=== PATIENT | female | born 1995 | race Caucasian/White ===

== ENCOUNTER 2018-10-27 18:29 | Emergency (ER) | payer SELFPAY ==
--- OUTSIDE RECORDS SUMMARY | 2018-10-27 18:32 | XMS REPORT | Clinical Summary ---
:1995 Author Organization [facility] Address [address] [place] [address] Care Team Providers Name Role Phone Asked, No Pcp Primary Care Provider Unavailable Allergies No Known Allergies Medications No known medications Active Problems Not on file Social History Tobacco Use Types Packs/Day Years Used Date Heavy Tobacco Smoker Cigarettes 0.5 1 Alcohol Use Drinks/Week oz/Week Comments Yes 1 Cans of beer 0.6 Sex Assigned at Date Recorded Not on file Job Start Date Occupation Industry Not on file Not on file Not on file Travel History Travel Start Travel End No recent travel history available. Last Filed Vital Signs Not on file Plan of Treatment Health Maintenance Due Date Last Done Comments CHLAMYDIA SCREENING 2010 INFLUENZA VACCINE 11/07/2018 Results Not on fileafter 10/26/2017 Advance Directives Patient has advance care planning documents on file. For more information, please contact:Nash Ninseyfw[address] [place] [address]
--- OUTSIDE RECORDS SUMMARY | 2018-10-27 18:32 | XMS REPORT ---
:1995 Author Organization [facility] Address [address] [place] [address] Dr. Marquis [address] [place] [id number] Care Team Providers Name Role Phone Unavailable Unavailable Unavailable Problems This patient has no known problems. Allergies, Adverse Reactions, Alerts This patient has no known allergies or adverse reactions. Medications This patient has no known medications. Encounters Start End Encounter Admission Attending Care Care Encounter Date/Time Date/Time Type Type Clinicians Facility Department ID 2017-05-14 2017-05-15 Outpatient [facility] [id number] 00:00:00 00:00:00
--- NOTE | 2018-10-27 18:58 | EDPHYS ---
Physician Documentation [facility] Name: Vianney Kauffman Age: 22 yrs Sex: Female : 1995 Arrival Date: 10/27/2018 Time: 18:31 Bed 28 Private MD: ED Physician Mitesh Cano HPI: 10/27 18:55 This 22 yrs old Female presents to ER via Ambulatory with complaints of kb Abdominal Cramping, Back Pain. 18:55 The patient presents to the emergency department with abdominal pain, vaginal bleeding, kb described as spotting. Previous pregnancies: in previous pregnancies patient has had. Associated signs and symptoms: Pertinent positives: abdominal pain, vaginal bleeding. The patient has not experienced similar symptoms in the past. The patient has not recently seen a physician. Pt reports she started having spotting and cramping 2 days ago and the symptoms have been getting worse. Reports she has the nexplanon so she isn't supposed to have a period so she took a test and there was a faint line showing positive. Has had the nexplanon in for 2.5 years and reports it is bent. 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 - Social history:: Smoking status: Patient/guardian denies using tobacco. - Ebola Screening: : No symptoms or risks identified at this time. ROS: 18:55 Constitutional: Negative for fever, chills, and weight loss, Cardiovascular: Negative kb for chest pain, palpitations, and edema, Respiratory: Negative for shortness of breath, cough, wheezing, and pleuritic chest pain, Back: Negative for injury and pain, MS/Extremity: Negative for injury and deformity, Skin: Negative for injury, rash, and discoloration, Neuro: Negative for headache, weakness, numbness, tingling, and seizure. 18:55 Abdomen/GI: Positive for abdominal cramps. 18:55 : Positive for vaginal bleeding. Exam: 18:55 Constitutional: This is a well developed, well nourished patient who is awake, alert, kb and in no acute distress. Head/Face: Normocephalic, atraumatic. Chest/axilla: Normal chest wall appearance and motion. Nontender with no deformity. No lesions are appreciated. Cardiovascular: Regular rate and rhythm with a normal S1 and S2. No gallops, murmurs, or rubs. Normal PMI, no JVD. No pulse deficits. Respiratory: Lungs have equal breath sounds bilaterally, clear to auscultation and percussion. No rales, rhonchi or wheezes noted. No increased work of breathing, no retractions or nasal flaring. Abdomen/GI: Soft, non-tender, with normal bowel sounds. No distension or tympany. No guarding or rebound. No evidence of tenderness throughout. Skin: Warm, dry with normal turgor. Normal color with no rashes, no lesions, and no evidence of cellulitis. MS/ Extremity: Pulses equal, no cyanosis. Neurovascular intact. Full, normal range of motion. Neuro: Awake and alert, GCS 15, oriented to person, place, time, and situation. Cranial nerves II-XII grossly intact. Motor strength 5/5 in all extremities. Sensory grossly intact. Cerebellar exam normal. Normal gait. Vital Signs: 18:36 BP 130 / 76; Pulse 108; Resp 16; Temp 97.8; Pulse Ox 98% on R/A; Weight 85.73 kg; la1 Height 5 ft. 3 in. (160.02 cm); 18:36 Body Mass Index 33.48 (85.73 kg, 160.02 cm) la1 MDM: 18:41 Patient medically screened. kb 18:55 Data reviewed: vital signs, nurses notes. Data interpreted: Pulse oximetry: on room air kb is 98 %. Interpretation: normal. Counseling: I had a detailed discussion with the patient and/or guardian regarding: the historical points, exam findings, and any diagnostic results supporting the discharge/admit diagnosis, lab results, the need for outpatient follow up, an OB/Gyne specialist, to return to the emergency department if symptoms worsen or persist or if there are any questions or concerns that arise at home. 18:58 ED course: test is negative here. Pt educated to follow up with [facility]. kb 10/27 18:57 Order name: Urine Dipstick--Ancillary (enter results) ms 10/27 18:57 Order name: Urine --Ancillary (enter results) ms 10/27 18:42 Order name: Urine Dipstick-Ancillary (obtain specimen); Complete Time: 18:55 kb 10/27 18:42 Order name: Urine Test (obtain specimen); Complete Time: 18:55 kb 10/27 18:58 Order name: Urine Dipstick-Ancillary; Complete Time: 19:12 EDMS 10/27 18:58 Order name: Urine --Ancillary; Complete Time: 19:12 EDMS Administered Medications: No medications were administered Disposition: 10/27/18 18:57 Discharged to Home. Impression: Irregular menstruation, unspecified. - Condition is Stable. - Discharge Instructions: Abnormal Uterine Bleeding, [id number]. - Medication Reconciliation Form, Thank You Letter, Antibiotic Education, Prescription Opioid Use form. - Follow up: Emergency Department; When: As needed; Reason: Worsening of condition. Follow up: Private Physician; When: 2 - 3 days; Reason: Recheck today's complaints, Continuance of care, Re-evaluation by your physician. Signatures: Dispatcher [employer] EDDC Supriya Rodriguez, BEAUTY THERAPIST-C BEAUTY THERAPIST-Wyatt Choudhury RN RN la1 Chelsey Mckay RN RN ca1 Corrections: (The following items were deleted from the chart) 19:16 18:57 10/27/2018 18:57 Discharged to Home. Impression: Irregular menstruation, ca1 unspecified. Condition is Stable. Forms are Medication Reconciliation Form, Thank You Letter, Antibiotic Education, Prescription Opioid Use. Follow up: Emergency Department; When: As needed; Reason: Worsening of condition. Follow up: Private Physician; When: 2 - 3 days; Reason: Recheck today's complaints, Continuance of care, Re-evaluation by your physician. kb
--- NOTE | 2018-10-27 18:58 | ER ---
Nurse's Notes [facility] Name: Vianney Kauffman Age: 22 yrs Sex: Female : 1995 Arrival Date: 10/27/2018 Time: 18:31 Bed 28 Private MD: Diagnosis: Irregular menstruation, unspecified Presentation: 10/27 18:36 Presenting complaint: Patient states: I have a nexplanon and I have been having la1 spotting for 2 days and abd cramping today. I took one UPT at home and there was a faint line. Transition of care: patient was not received from another setting of care. Onset of symptoms was October 27, 2018. Risk Assessment: Do you want to hurt yourself or someone else? Patient reports no desire to harm self or others. Initial Sepsis Screen: Does the patient meet any 2 criteria? No. Patient's initial sepsis screen is negative. Does the patient have a suspected source of infection? No. Patient's initial sepsis screen is negative. Care prior to arrival: None. 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 - Social history:: Smoking status: Patient/guardian denies using tobacco. - Ebola Screening: : No symptoms or risks identified at this time. Screenin:50 Abuse screen: Denies threats or abuse. Denies injuries from another. Nutritional ca1 screening: No deficits noted. Tuberculosis screening: No symptoms or risk factors identified. Fall Risk None identified. Assessment: 18:50 General: Appears in no apparent distress. comfortable, Behavior is calm, cooperative, ca1 appropriate for age. Pain: Complains of pain in abdomen Pain radiates to back Pain currently is 8 out of 10 on a pain scale. Quality of pain is described as crampy, Pain began today Is intermittent. Neuro: Level of Consciousness is awake, alert, obeys commands, Oriented to person, place, time, situation. Cardiovascular: Heart tones S1 S2 present Capillary refill < 3 seconds Patient's skin is warm and dry. Respiratory: Airway is patent Respiratory effort is even, unlabored, Respiratory pattern is regular, symmetrical, Breath sounds are clear bilaterally. GI: Abdomen is round non-distended, Bowel sounds present X 4 quads. Abd is soft X 4 quads Abdomen is tender to palpation in suprapubic area, right lower quadrant and left lower quadrant Patient currently denies nausea, vomiting. : Reports vaginal bleeding that is spotty, since yesterday. EENT: No deficits noted. No signs and/or symptoms were reported regarding the EENT system. Derm: Skin is intact, is healthy with good turgor, Skin is pink, warm \T\ dry. Musculoskeletal: Circulation, motion, and sensation intact. Capillary refill < 3 seconds, Range of motion: intact in all extremities. 19:14 Reassessment: Patient appears in no apparent distress at this time. Patient is alert, ca1 oriented x 3, equal unlabored respirations, skin warm/dry/pink. Vital Signs: 18:36 BP 130 / 76; Pulse 108; Resp 16; Temp 97.8; Pulse Ox 98% on R/A; Weight 85.73 kg; la1 Height 5 ft. 3 in. (160.02 cm); 18:36 Body Mass Index 33.48 (85.73 kg, 160.02 cm) la1 ED Course: 18:31 Patient arrived in ED. mr 18:36 Arm band placed on left wrist. la1 18:37 Triage completed. la1 18:41 Supriya Rodriguez FNP-C is [facility]. kb 18:41 Mitesh Cano MD is Attending Physician. kb 18:50 Patient has correct armband on for positive identification. Placed in gown. Bed in low ca1 position. Call light in reach. Side rails up X 1. Pulse ox on. NIBP on. Warm blanket given. 18:50 No provider procedures requiring assistance completed. Patient did not have IV access ca1 during this emergency room visit. 18:55 Chelsey Mckay, BESSIE is Primary Nurse. ca1 19:00 Urine --Ancillary (enter results) Sent. jp3 19:00 Urine Dipstick--Ancillary (enter results) Sent. jp3 Administered Medications: No medications were administered Outcome: 18:57 Discharge ordered by . kb 19:14 Discharged to home ambulatory, with significant other. ca1 19:14 Condition: stable 19:14 Discharge instructions given to patient, Instructed on discharge instructions, follow up and referral plans. Demonstrated understanding of instructions, follow-up care. 19:16 Patient left the ED. ca1 Signatures: Supriya Rodriguez, JAMESON JONASP-Gricel Palomo mr DelphineWyatt, RN RN la1 Mino Belle jp3 Chelsey Mckay RN RN ca1
[2018-10-27 19:03] LABS: Urine Blood 2+ (NEG); Urine Glucose NEGATIVE (NEG); Urine Protein NEGATIVE (NEG)
== END 2018-10-27 19:16 | disposition home or self-care (01) ==
LOC: ER 18:29
DX: N92.6 Irregular menstruation, unspecified (principal)
CPT/HCPCS: 81003; 81025; 99283

== ENCOUNTER 2019-04-07 12:49 | Emergency (ER) | payer SELFPAY ==
--- OUTSIDE RECORDS SUMMARY | 2019-04-07 12:51 | XMS REPORT ---
:1995 [facility] Address [address] Marquis [address] [place] [address] Care Team Providers Name Role Phone Unavailable Unavailable Unavailable Problems This patient has no known problems. Allergies, Adverse Reactions, Alerts This patient has no known allergies or adverse reactions. Medications This patient has no known medications. Encounters Start End Encounter Admission Attending Care Care Encounter Date/Time Date/Time Type Type Clinicians Facility Department ID 2017-05-14 2017-05-15 Outpatient [facility] [id number] 00:00:00 00:00:00
[2019-04-07] MEDS ORDERED: TETRACAINE HCL 0.5% 4ML OPTH ONE (13:54)
[2019-04-07] MEDS ORDERED: FLUORESCEIN SODIUM 1 MG/WRAP ONE (13:54)
--- NOTE | 2019-04-07 14:56 | ER ---
Nurse's Notes [facility] Name: Vianney Kauffman Age: 23 yrs Sex: Female : 1995 Arrival Date: 04/07/2019 Time: 12:52 Bed 12 Private MD: Diagnosis: Preseptal Cellulitis Presentation: 04/07 13:03 Presenting complaint: Left eye pain, redness, and swelling x 3 days. Transition of hb care: patient was not received from another setting of care. Onset of symptoms was April 05, 2019. Risk Assessment: Do you want to hurt yourself or someone else? Patient reports no desire to harm self or others. Initial Sepsis Screen: Does the patient meet any 2 criteria? No. Patient's initial sepsis screen is negative. Care prior to arrival: None. 13:03 Method Of Arrival: Ambulatory 13:03 Acuity: SOLEDAD 4 hb Triage Assessment: 13:05 General: Appears in no apparent distress. Behavior is calm, cooperative. Pain: Pain hb currently is 8 out of 10 on a pain scale. EENT: left periorbital swelling. Neuro: Level of Consciousness is awake, alert, obeys commands, Oriented to person, place, time, situation. Cardiovascular: Capillary refill < 3 seconds Patient's skin is warm and dry. Respiratory: Airway is patent Respiratory effort is even, unlabored, Respiratory pattern is regular, symmetrical. GI: No signs and/or symptoms were reported involving the gastrointestinal system. : No signs and/or symptoms were reported regarding the genitourinary system. Derm: Skin is pink, warm \T\ dry. Musculoskeletal: No signs and/or symptoms reported regarding the musculoskeletal system. 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 - Social history:: Smoking status: Patient/guardian denies using tobacco. - Ebola Screening: : No symptoms or risks identified at this time. Screenin:49 Abuse screen: Denies threats or abuse. Denies injuries from another. Nutritional hb screening: No deficits noted. Tuberculosis screening: No symptoms or risk factors identified. Fall Risk None identified. Assessment: 13:49 Reassessment: Patient appears in no apparent distress at this time. No changes from hb previously documented assessment. Patient and/or family updated on plan of care and expected duration. Pain level reassessed. 14:45 Reassessment: Patient appears in no apparent distress at this time. No changes from hb previously documented assessment. Patient and/or family updated on plan of care and expected duration. Pain level reassessed. Patient is alert, oriented x 3, equal unlabored respirations, skin warm/dry/pink. Vital Signs: 13:04 BP 148 / 88; Pulse 86; Resp 16; Temp 97.9; Pulse Ox 100% on R/A; Weight 104.33 kg; hb Height 5 ft. 3 in. (160.02 cm); Pain 8/10; 13:04 Body Mass Index 40.74 (104.33 kg, 160.02 cm) hb ED Course: 12:52 Patient arrived in ED. rg4 13:04 Triage completed. hb 13:04 Arm band placed on. hb 13:47 Nitza Plaza, RN is Primary Nurse. hb 13:49 Floyd Milligan PA is PHCP. jr8 13:49 Clifford Bateman MD is Attending Physician. jr8 13:49 Patient has correct armband on for positive identification. Call light in reach. hb 14:54 Jayjay Hayes MD is Referral Physician. jr8 15:13 No provider procedures requiring assistance completed. Patient did not have IV access hb during this emergency room visit. Administered Medications: No medications were administered Outcome: 14:54 Discharge ordered by . jr8 15:13 Discharged to home ambulatory, with family. hb 15:13 Condition: stable 15:13 Discharge instructions given to patient, Instructed on discharge instructions, follow up and referral plans. medication usage, Demonstrated understanding of instructions, follow-up care, medications, Prescriptions given X 2. 15:14 Patient left the ED. hb Signatures: Floyd Milligan PA PA jrNitza Caba, RN RN Lili Perez rg4
--- NOTE | 2019-04-07 14:56 | EDPHYS ---
Physician Documentation [facility] Name: Vianney Kauffman Age: 23 yrs Sex: Female : 1995 Arrival Date: 04/07/2019 Time: 12:52 Bed 12 Private MD: ED Physician Clifford Bateman HPI: 04/07 14:47 This 23 yrs old Female presents to ER via Ambulatory with complaints of Eye jr8 Swelling. 14:47 The patient is experiencing burning, redness, tearing. Onset: The symptoms/episode jr8 began/occurred acutely, yesterday. Duration: the symptoms are continuous. Aggravated by light. Associated signs and symptoms: Pertinent positives: None. Patient does not utilize any form of vision correction. Severity of symptoms: At their worst the symptoms were moderate in the emergency department the symptoms are unchanged. The patient has not experienced similar symptoms in the past. The patient has not recently seen a physician. Patient stated that she felt like something was in her eye yesterday. Stated that since then has had itching and burning. Now with injection, pain, and tearing to eye . 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 - Social history:: Smoking status: Patient/guardian denies using tobacco. - Ebola Screening: : No symptoms or risks identified at this time. ROS: 14:47 Constitutional: Negative for fever, chills, and weight loss. jr8 14:47 Eyes: Positive for blurry vision, pain, redness, swelling, tearing, of the left eye. 14:47 All other systems are negative. Exam: 14:47 Head/Face: Normocephalic, atraumatic. ENT: Nares patent. No nasal discharge, no jr8 septal abnormalities noted. Tympanic membranes are normal and external auditory canals are clear. Oropharynx with no redness, swelling, or masses, exudates, or evidence of obstruction, uvula midline. Mucous membranes moist. Neck: Trachea midline, no thyromegaly or masses palpated, and no cervical lymphadenopathy. Supple, full range of motion without nuchal rigidity, or vertebral point tenderness. No Meningismus. Cardiovascular: Regular rate and rhythm with a normal S1 and S2. No gallops, murmurs, or rubs. Normal PMI, no JVD. No pulse deficits. Respiratory: Lungs have equal breath sounds bilaterally, clear to auscultation and percussion. No rales, rhonchi or wheezes noted. No increased work of breathing, no retractions or nasal flaring. Abdomen/GI: Soft, non-tender, with normal bowel sounds. No distension or tympany. No guarding or rebound. No evidence of tenderness throughout. Back: No spinal tenderness. No costovertebral tenderness. Full range of motion. Skin: Warm, dry with normal turgor. Normal color with no rashes, no lesions, and no evidence of cellulitis. MS/ Extremity: Pulses equal, no cyanosis. Neurovascular intact. Full, normal range of motion. Neuro: Awake and alert, GCS 15, oriented to person, place, time, and situation. Cranial nerves II-XII grossly intact. Motor strength 5/5 in all extremities. Sensory grossly intact. Cerebellar exam normal. Normal gait. 14:47 Eyes: Periorbital structures: swelling, that is mild, on the left supraorbital ridge, left upper eyelid and left lower eyelid, Pupils: equal, round, and reactive to light and accomodation, Extraocular movements: intact throughout, Conjunctiva: injected, in the left eye, tearing noted, in left eye, Corneas: are normal, Sclera: no appreciated abnormality, Anterior chamber: normal, Lids and lashes: appear normal. Vital Signs: 13:04 BP 148 / 88; Pulse 86; Resp 16; Temp 97.9; Pulse Ox 100% on R/A; Weight 104.33 kg; hb Height 5 ft. 3 in. (160.02 cm); Pain 8/10; 13:04 Body Mass Index 40.74 (104.33 kg, 160.02 cm) hb Procedures: 14:53 Eye Exam: No corneal abrasion or ulceration noted with fluorescein strip. jr8 MDM: 13:50 Patient medically screened. [facility] 14:53 Data reviewed: vital signs, nurses notes. Data interpreted: Pulse oximetry: on room air jr8 is 100 %. Interpretation: normal. Counseling: I had a detailed discussion with the patient and/or guardian regarding: the historical points, exam findings, and any diagnostic results supporting the discharge/admit diagnosis, the need for outpatient follow up, an opthalmologist, to return to the emergency department if symptoms worsen or persist or if there are any questions or concerns that arise at home. Administered Medications: No medications were administered Disposition: 04/07/19 14:54 Discharged to Home. Impression: Preseptal Cellulitis . - Condition is Stable. - Discharge Instructions: Preseptal Cellulitis, Adult. - Prescriptions for Gentamicin 0.3 % Ophthalmic Drops - instill 2 drops by OPHTHALMIC route every 4 hours for 7 days; 1 bottle. Bactrim DS 800- 160 mg Oral Tablet - take 1 tablet by ORAL route every 12 hours for 10 days; 20 tablet. - Medication Reconciliation Form, Thank You Letter, Antibiotic Education, Prescription Opioid Use, Family Work Release form. - Follow up: Jayjay Hayes MD; When: 2 - 3 days; Reason: Recheck today's complaints, Continuance of care, Re-evaluation by your physician. - Problem is new. - Symptoms have improved. Addendum: 04/14/2019 07:24 Co-signature as Attending Physician, Clifford Bateman MD I agree with the assessment and c beltran plan of care. Signatures: Clifford Bateman MD MD cha Roszak, Josh, PA PA jr8 Nitza Plaza RN RN Corrections: (The following items were deleted from the chart) 04/07 15:14 14:54 04/07/2019 14:54 Discharged to Home. Impression: Preseptal Cellulitis . Condition hb is Stable. Forms are Medication Reconciliation Form, Thank You Letter, Antibiotic Education, Prescription Opioid Use. Follow up: Jayjay Hayes; When: 2 - 3 days; Reason: Recheck today's complaints, Continuance of care, Re-evaluation by your physician. Problem is new. Symptoms have improved. jr8
[2019-04-07 15:27] VITALS: BP 148/88; TEMP 97.9; O2SAT 100
== END 2019-04-07 15:14 | disposition home or self-care (01) ==
LOC: ER 12:49
DX: L03.213 Periorbital cellulitis (principal)
CPT/HCPCS: 99282

== ENCOUNTER 2019-08-13 03:46 | Inpatient (IN) | payer SELFPAY ==
--- OUTSIDE RECORDS SUMMARY | 2019-08-13 03:48 | XMS REPORT ---
:1995 Author Organization [facility] Address [address] [place] [address] Dr. Marquis [address] [place] [address] Care Team Providers Name Role Phone Unavailable Unavailable Unavailable Problems This patient has no known problems. Allergies, Adverse Reactions, Alerts This patient has no known allergies or adverse reactions. Medications This patient has no known medications. Encounters Start End Encounter Admission Attending Care Care Encounter Date/Time Date/Time Type Type Clinicians Facility Department ID 2017-05-14 2017-05-15 [id number] 00:00:00 00:00:00
[2019-08-13] MEDS ORDERED: ONDANSETRON 4 MG/2 ML VIAL ONE ×2 (04:18→08:53)
[2019-08-13] MEDS ORDERED: MORPHINE 4 MG/ML SYR ONE (04:18)
[2019-08-13 04:20] LABS: Absolute Lymphocytes (CBC) 3.5 K/uL (0.7-4.9); Basophils % 0.6 % (0-1.3); Hematocrit 41.2 % (36.0-45.0); Lymphocytes % 26.1 % (15.3-44.8); MPV 9.5 fL (7.6-11.3); RBC Red Blood Cell Count 4.66 M/uL (3.86-4.86)
[2019-08-13 04:36] LABS: ALT/SGPT 32 U/L (12-78); AST/SGOT 21 U/L (15-37); Albumin 4.1 g/dL (3.4-5.0); Alkaline Phosphatase 91 U/L (45-117); BUN Blood Urea Nitrogen 8 mg/dL (7-18); Bicarbonate 24 mmol/L (21-32); Bilirubin Direct < 0.1 mg/dL (0-0.2); Bilirubin Total 0.2 mg/dL (0.2-1.0); Glucose Level 122 mg/dL (74-106); Lipase 107 U/L (73-393); Potassium 3.6 mmol/L (3.5-5.1); Protein, Total 8.5 g/dL (6.4-8.2); Sodium Level 139 mmol/L (136-145)
[2019-08-13] MEDS ORDERED: MAGNE/ALUM HYDROXD 30 ML UCUP ONE (05:04)
[2019-08-13] MEDS ORDERED: LIDOCAINE VISCOUS 2% SOLN 15 ML UDC ONE (05:04)
[2019-08-13 05:50] LABS: Urine Blood NEGATIVE (NEG); Urine Glucose NEGATIVE (NEG); Urine Protein TRACE (NEG); Urine Specific Gravity >1.030 (1.005-1.030)
--- NOTE | 2019-08-13 06:54 | ER ---
Nurse's Notes [facility] Name: Vianney Kauffman Age: 23 yrs Sex: Female : 1995 Arrival Date: 08/13/2019 Time: 03:47 Bed 5 Private MD: Diagnosis: Acute cholecystitis Presentation: 08/12 03:53 Chief complaint: Patient states: pt reports abdominal pain, pointing to the epigastric sg area, states that the pain began around 10 pm last night, just getting worse this morning, denies N/V/D/Fever at this time. Coronavirus screen: Proceed with normal triage. Ebola Screen: Patient negative for fever greater than or equal to 101.5 degrees Fahrenheit, and additional compatible Ebola Virus Disease symptoms Patient denies exposure to infectious person. Patient denies travel to an Ebola-affected area in the 21 days before illness onset. No symptoms or risks identified at this time. Initial Sepsis Screen: Does the patient meet any 2 criteria? No. Patient's initial sepsis screen is negative. Does the patient have a suspected source of infection? Yes: Acute abdominal pain. Risk Assessment: Do you want to hurt yourself or someone else? Patient reports no desire to harm self or others. Onset of symptoms was August 12, 2019. Care prior to arrival: None. Transition of care: patient was not received from another setting of care. 03:53 Method Of Arrival: Ambulatory 03:53 Acuity: SOLEDAD 3 sg Historical: - Allergies: 03:55 No Known Allergies; sg - Home Meds: 03:55 None [Active]; sg - PMHx: 03:55 None; sg - PSHx: 03:55 None; sg - Immunization history:: Adult Immunizations up to date. - Social history:: Smoking status: Reported history of juuling and/or vaping. Screenin:09 Abuse screen: Denies threats or abuse. Nutritional screening: No deficits noted. ea Tuberculosis screening: No symptoms or risk factors identified. Fall Risk IV access (20 points). Assessment: 04:10 General: Appears uncomfortable, Behavior is calm, cooperative, appropriate for age. ea Pain: Complains of pain in right upper quadrant. Neuro: Level of Consciousness is awake, alert, obeys commands, Oriented to person, place, time, situation. Cardiovascular: Patient's skin is warm and dry. Respiratory: Airway is patent Respiratory effort is even, unlabored, Respiratory pattern is regular, symmetrical. GI: Abdomen is non-distended, Reports upper abdominal pain. Derm: Skin is pink, warm \T\ dry. 07:40 Reassessment: Patient appears in no apparent distress at this time. Patient and/or iw family updated on plan of care and expected duration. Pain level reassessed. Patient is alert, oriented x 3, equal unlabored respirations, skin warm/dry/pink. Vital Signs: 03:51 BP 153 / 100; Pulse 116; Resp 19; Pulse Ox 99% on R/A; ea 03:53 Weight 95.71 kg (R); Height 5 ft. 6 in. (167.64 cm) (R); sg 06:57 BP 119 / 89; Pulse 108; Resp 18; Pulse Ox 98% ; ea 03:53 Body Mass Index 34.06 (95.71 kg, 167.64 cm) sg ED Course: 03:47 Patient arrived in ED. ds1 03:54 Triage completed. sg 03:54 Arm band placed on. sg 04:03 Jalen Duarte MD is Attending Physician. sg 04:04 Inserted saline lock: 20 gauge in right antecubital area, using aseptic technique. ea Blood collected. 04:09 Sintia Liz, BESSIE is Primary Nurse. ea 04:09 Patient has correct armband on for positive identification. Bed in low position. Call ea light in reach. Side rails up X2. 05:33 CT Abd/Pelvis - IV Contrast Only In Process Unspecified. EDMS 06:53 Niall Pina MD is Hospitalizing Provider. tw4 07:40 No provider procedures requiring assistance completed. Patient admitted, IV remains in iw place. Administered Medications: 04:12 Drug: morphine 4 mg Route: IVP; Site: right antecubital; ea 07:49 Follow up: Response: No adverse reaction; Pain is decreased iw 04:12 Drug: Zofran (Ondansetron) 4 mg Route: IVP; Site: right antecubital; ea 07:49 Follow up: Response: No adverse reaction iw 05:02 Drug: GI Cocktail without - (Maalox Suspension 30 ml, Lidocaine Liquid 2 % 15 jd3 ml) Route: PO; 07:49 Follow up: Response: No adverse reaction iw 07:04 Drug: fentaNYL (PF) 50 mcg Route: IVP; Site: right antecubital; ea 07:49 Follow up: Response: No adverse reaction; Pain is decreased iw 07:37 Drug: Zosyn 3.375 grams Route: IVPB; Infused Over: 60 mins; Site: right antecubital; iw 07:48 Follow up: IV Status: Infusion continued upon admission iw Outcome: 06:53 Decision to Hospitalize by Provider. tw4 07:46 Admitted to OR accompanied by nurse, via wheelchair. iw 07:46 Condition: good 07:46 Discharge instructions given to patient, Instructed on the need for admit, Demonstrated understanding of instructions. 07:50 Patient left the ED. iw Signatures: Dispatcher [employer] EDMS Juan Restrepo, RN Mouna Blum ds1 Charlee Sanderson RN BESSIE Sintia Liz RN RN ea Davies, Jonathon, RN RN jd3 Wadley, Terrence, MD MD tw4
--- NOTE | 2019-08-13 06:55 | EDPHYS ---
Physician Documentation [facility] Name: Vianney Kauffman Age: 23 yrs Sex: Female : 1995 Arrival Date: 08/13/2019 Time: 03:47 Bed 5 Private MD: ED Physician Jalen Duarte HPI: 08/12 04:36 This 23 yrs old Female presents to ER via Ambulatory with complaints of tw4 Epigastric Pain. 04:36 The patient presents with abdominal pain in the epigastric area. Onset: The tw4 symptoms/episode began/occurred last night. The symptoms do not radiate. Associated signs and symptoms: none. The symptoms are described as sharp. Modifying factors: The symptoms are alleviated by nothing, the symptoms are aggravated by nothing. Severity of pain: At its worst the pain was moderate in the emergency department the pain is unchanged. The patient has not experienced similar symptoms in the past. Historical: - Allergies: 03:55 No Known Allergies; sg - Home Meds: 03:55 None [Active]; sg - PMHx: 03:55 None; sg - PSHx: 03:55 None; sg - Immunization history:: Adult Immunizations up to date. - Social history:: Smoking status: Reported history of juuling and/or vaping. ROS: 04:36 Constitutional: Negative for fever, chills, and weight loss, Eyes: Negative for injury, tw4 pain, redness, and discharge, Cardiovascular: Negative for chest pain, palpitations, and edema, Respiratory: Negative for shortness of breath, cough, wheezing, and pleuritic chest pain, Back: Negative for injury and pain, MS/Extremity: Negative for injury and deformity, Skin: Negative for injury, rash, and discoloration, Neuro: Negative for headache, weakness, numbness, tingling, and seizure. 04:36 Abdomen/GI: Positive for abdominal pain, Negative for nausea and vomiting, nausea, vomiting, and diarrhea, vomiting, abdominal cramps, abdominal distension, anorexia, dysphagia, hematemesis, black/tarry stool, rectal pain, rectal bleeding. Exam: 04:36 Constitutional: This is a well developed, well nourished patient who is awake, alert, tw4 and in no acute distress. Head/Face: Normocephalic, atraumatic. Chest/axilla: Normal chest wall appearance and motion. Nontender with no deformity. No lesions are appreciated. Cardiovascular: Regular rate and rhythm with a normal S1 and S2. No gallops, murmurs, or rubs. Normal PMI, no JVD. No pulse deficits. Respiratory: Lungs have equal breath sounds bilaterally, clear to auscultation and percussion. No rales, rhonchi or wheezes noted. No increased work of breathing, no retractions or nasal flaring. Back: No spinal tenderness. No costovertebral tenderness. Full range of motion. Skin: Warm, dry with normal turgor. Normal color with no rashes, no lesions, and no evidence of cellulitis. MS/ Extremity: Pulses equal, no cyanosis. Neurovascular intact. Full, normal range of motion. Neuro: Awake and alert, GCS 15, oriented to person, place, time, and situation. Cranial nerves II-XII grossly intact. Motor strength 5/5 in all extremities. Sensory grossly intact. Cerebellar exam normal. Normal gait. 04:36 Abdomen/GI: Inspection: abdomen appears normal, Bowel sounds: normal, Palpation: moderate abdominal tenderness, in the epigastric area. Vital Signs: 03:51 BP 153 / 100; Pulse 116; Resp 19; Pulse Ox 99% on R/A; ea 03:53 Weight 95.71 kg (R); Height 5 ft. 6 in. (167.64 cm) (R); sg 06:57 BP 119 / 89; Pulse 108; Resp 18; Pulse Ox 98% ; ea 03:53 Body Mass Index 34.06 (95.71 kg, 167.64 cm) sg MDM: 04:35 Patient medically screened. tw4 07:02 Differential diagnosis: cholecystitis, Cholelithiasis, gastritis, gastroesophageal tw4 reflux disease, Hepatitis, pancreatitis, Peptic Ulcer Disease, Perf. Duodenal Ulcer, Perf. Gastric Ulcer, Peritonitis. Data reviewed: vital signs, nurses notes. Data reviewed: lab test result(s), CBC, hepatic panel, radiologic studies, CT scan. Data interpreted: Pulse oximetry: Interpretation: normal. Test interpretation: by ED physician or midlevel provider: not applicable. Counseling: I had a detailed discussion with the patient and/or guardian regarding: the historical points, exam findings, and any diagnostic results supporting the discharge/admit diagnosis, lab results, radiology results. Medication response: morphine partially relieved the patient's pain. Response to treatment: the patient's symptoms have mildly improved after treatment, and as a result, I will admit patient. Physician consultation: Niall Pina MD was contacted at 06:50, regarding admission, to the medical/surgical unit. and will see patient in inpatient room. 08/12 04:03 Order name: Urine Dipstick--Ancillary (enter results); Complete Time: 06:36 08/12 04:03 Order name: Urine --Ancillary (enter results); Complete Time: 06:36 08/12 06:36 Interpretation: Normal except: USPGR >1.030. 08/12 04:03 Order name: Basic Metabolic Panel; Complete Time: 04:40 sg 08/12 04:40 Interpretation: Normal except: GLUC 122; GFR 82. 08/12 04:03 Order name: CBC with Diff; Complete Time: 04:40 08/12 04:40 Interpretation: Normal except: WBC 13.2. 08/12 04:03 Order name: Creatinine for Radiology; Complete Time: 04:40 08/12 04:40 Interpretation: CRE 0.83. 08/12 04:03 Order name: Hepatic Function; Complete Time: 04:40 sg 08/12 04:40 Interpretation: Normal except: TP 8.5; GLOB 4.4; A/G 0.9. 08/12 04:03 Order name: Lipase; Complete Time: 04:40 sg 08/12 04:40 Interpretation: Within normal limits: LIP 107. tw4 08/12 07:03 Order name: Basic Metabolic Panel EDVA 08/12 07:03 Order name: Basic Metabolic Panel EDVA 08/12 07:03 Order name: CBC with Automated Diff EDMS 08/12 07:03 Order name: CBC with Automated Diff EDMS 08/12 07:03 Order name: Lipase EDMS 08/12 07:03 Order name: Lipase EDMS 08/12 07:03 Order name: Liver (Hepatic) Function EDMS 08/12 04:03 Order name: IV Saline Lock; Complete Time: 04:44 sg 08/12 04:03 Order name: Labs collected and sent; Complete Time: 04:44 sg 08/12 04:11 Order name: CT Abd/Pelvis - IV Contrast Only sg 08/12 07:03 Order name: NPO EDMS 08/12 07:03 Order name: Liver (Hepatic) Function EDMS Administered Medications: 04:12 Drug: morphine 4 mg Route: IVP; Site: right antecubital; ea 07:49 Follow up: Response: No adverse reaction; Pain is decreased iw 04:12 Drug: Zofran (Ondansetron) 4 mg Route: IVP; Site: right antecubital; ea 07:49 Follow up: Response: No adverse reaction iw 05:02 Drug: GI Cocktail without - (Maalox Suspension 30 ml, Lidocaine Liquid 2 % 15 jd3 ml) Route: PO; 07:49 Follow up: Response: No adverse reaction iw 07:04 Drug: fentaNYL (PF) 50 mcg Route: IVP; Site: right antecubital; ea 07:49 Follow up: Response: No adverse reaction; Pain is decreased iw 07:37 Drug: Zosyn 3.375 grams Route: IVPB; Infused Over: 60 mins; Site: right antecubital; iw 07:48 Follow up: IV Status: Infusion continued upon admission iw Disposition: 08/13/19 06:53 Hospitalization ordered by Niall Pina for Inpatient Admission. Preliminary diagnosis is Acute cholecystitis. - Bed requested for Telemetry/MedSurg (Inpatient). - Status is Inpatient Admission. iw - Condition is Stable. - Problem is new. - Symptoms have improved. Signatures: Dispatcher [employer] EDMS Juan Restrepo RN RN sg Williams, Irene, RN RN Unique Meade RN RN tl1 Sintia Liz RN RN ea Davies, Jonathon, RN RN jd3 Wadley, Terrence, MD MD tw4 Corrections: (The following items were deleted from the chart) 07:36 06:53 Hospitalization Ordered by Niall Pina MD for Inpatient Admission. Preliminary tl1 diagnosis is Acute cholecystitis. Bed requested for Telemetry/MedSurg (Inpatient). Status is Inpatient Admission. Condition is Stable. Problem is new. Symptoms have improved. tw4 07:50 07:36 08/13/2019 06:53 Hospitalization Ordered by Niall Pina MD for Inpatient iw Admission. Preliminary diagnosis is Acute cholecystitis. Bed requested for Telemetry/MedSurg (Inpatient). Status is Inpatient Admission. Condition is Stable. Problem is new. Symptoms have improved. tl1
[2019-08-13] MEDS ORDERED: ONDANSETRON 4 MG/2 ML VIAL IV PRN ×2 (07:01→09:30)
[2019-08-13] MEDS ORDERED: HYDROMORPHONE HCL 1 MG/ML INJ IV PRN ×2 (07:01→09:30)
[2019-08-13] MEDS ORDERED: FENTANYL CITR 100 MCG/2 ML ONE ×3 (07:03→08:52)
[2019-08-13] MEDS ORDERED: PIPER/TAZO/NS 3.375gm 3.375 GM/100 ML BAG ONE (07:33)
[2019-08-13] MEDS ORDERED: LIDOCAINE 1% MPF 5 ML VIAL ONE (07:35)
[2019-08-13] MEDS ORDERED: MIDAZOLAM HCL 2 MG/2 ML INJ ONE (07:35)
[2019-08-13] MEDS ORDERED: propofoL 200 MG/20 ML VIAL IV ONE (07:35)
[2019-08-13] MEDS ORDERED: ROCURONIUM 50 MG/5 ML VIAL IV ONE (07:36)
[2019-08-13] MEDS ORDERED: D5 0.45 NS 1,000 ML IV SCH (08:00)
[2019-08-13] MEDS ORDERED: Ringers Lactate 1,000 ML IV ONE ×2 (08:03→09:27)
[2019-08-13] MEDS ORDERED: KETOROLAC 30 MG/ML INJ ONE (08:53)
[2019-08-13] MEDS ORDERED: dexAMETHasone 10 MG/ML VIAL ONE (08:53)
[2019-08-13] MEDS ORDERED: GLYCOPYRROLATE 0.2 MG/ML SYR ONE (09:00)
[2019-08-13] MEDS ORDERED: NEOSTIGMINE 1 MG/ML -5 ML ONE (09:00)
--- NOTE | 2019-08-13 09:25 | P.OP ---
Assistant Bookkeeper: Laina ALMANZAR Preoperative diagnosis: Acute Cholecystitis and Cholelithiasis Postoperative diagnosis: same Primary procedure: Lap Stefanie Anesthesia: Gen Estimated blood loss: min Specimen: GB Findings: as above Complications: None Transferred to: Recovery Room Condition: Good
[2019-08-13] MEDS ORDERED: HYDROCODONE/APAP 7.5/325 MG TAB PO PRN (09:30)
--- NOTE | 2019-08-13 09:37 | PREOPHP ---
Date of Admission: 08/13/2019 Reason: Abdominal pain. History Of Present Illness: Patient is a 23-year-old female who comes in with acute onset of epigast chuck and right upper quadrant pain going to the back. Denies any nausea or vomiting. Occasional bloa ting, belching, and heartburn. No diarrhea or constipation. No blood in her stool. No dysuria, hem aturia. No sore throat, runny nose, cough, headaches, or dizziness. No chest pain. No fever or chi lls. Review of Systems: Otherwise unremarkable. Past Medical History: Negative. Past Surgical History: Negative. Allergies: NONE. Social History: The patient basically denies drinking. Family History: Noncontributory. Physical Examination: Vital Signs: Stable. Blood pressure is a little high; however, she is afebrile. General: She is awake, alert, oriented x3. Head and Neck: Cranial nerves 2 through 12 grossly within normal limits. No neck masses. No JVD. Throat clear. Neck supple. No evidence of icterus. Chest: Clear. Heart: S1, S2. Abdomen: Soft, nondistended. Positive bowel sounds. Positive right upper quadrant tenderness with minimal rebound. No rigidity or guarding. Extremities: Adequately perfused. Nontender. Neuro: Nonfocal. Laboratory Data And Imaging: White count is slightly elevated at 13,000 with a left shift. LFTs, am ylase, lipase are within normal limits. CT of the abdomen and pelvis is consistent with acute cholec ystitis with stones in the neck of the gallbladder. Assessment: Acute cholecystitis, cholelithiasis. Plan: Admit. N.p.o. IV fluid, IV antibiotic. To the OR for laparoscopic cholecystectomy, possible open. Patient understands the risks, benefits, and alternatives and agrees to procedure. /MODL Voice ID: [id number]
--- NOTE | 2019-08-13 09:49 | RAD REPORT ---
EXAM DESCRIPTION: CT - Abdomen Pelvis W Contrast - 08/13/2019 6:37 am CLINICAL HISTORY: The patient is 23 years old and is Female; ABD PAIN TECHNIQUE: Axial computed tomography images of the abdomen and pelvis with intravenous contrast. S agittal and coronal reformatted images were created and reviewed. This CT exam was performed using one or more of the following dose reduction techniques: automated exposure control, adjustment of t he mA and/or kV according to patient size, and/or use of iterative reconstruction technique. COMPARISON: No relevant prior studies available. FINDINGS: LUNG BASES: Unremarkable. No mass. No consolidation. ABDOMEN: LIVER: The liver is mildly fatty. GALLBLADDER AND BILE DUCTS: The gallbladder is distended. Calcified gallstones are present withi n the neck of the gallbladder. Mild gallbladder wall thickening is suggested. PANCREAS: No ductal dilation. No mass. SPLEEN: Unremarkable. ADRENALS: Unremarkable. No mass. KIDNEYS AND URETERS: Unremarkable. The kidneys enhance symmetrically. No obstructing renal or ur eteral calculus is seen. No hydronephrosis or hydroureter. No perinephric fluid or stranding. STOMACH AND BOWEL: The stomach is distended with food contents. The small bowel is normal in coty iber. Stool is present throughout colon. There is no mucosal thickening or evidence of bowel obstruct ion. PELVIS: APPENDIX: The appendix is normal in caliber without surrounding inflammation. BLADDER: The bladder is moderately distended. REPRODUCTIVE: A 2.2 cm right ovarian cyst is present. A 3 cm left ovarian cyst is present. No fo llow-up imaging is recommended. The uterus is unremarkable. ABDOMEN and PELVIS: INTRAPERITONEAL SPACE: Unremarkable. No free air. No significant fluid collection. BONES/JOINTS: No acute fracture. SOFT TISSUES: The soft tissues are normal. VASCULATURE: Unremarkable. No abdominal aortic aneurysm. LYMPH NODES: Unremarkable. No enlarged lymph nodes. IMPRESSION: Cholelithiasis with distended gallbladder and mild gallbladder wall thickening. Findings may be secondary to acute cholecystitis. Electronically signed by: Kristen Bagley MD 08/13/2019 6:01 AM CDT Due to temporary technical issues with the PACS/Fluency reporting system, reports are being signed by the in house radiologist as a courtesy to ensure prompt reporting. The interpreting radiologist is f ully responsible for the content of the report.
[2019-08-13] MEDS: HYDROMORPHONE HCL 1 MG/ML INJ ONE ×2 (10:07→10:14)
[2019-08-13] MEDS ORDERED: PROMETHAZINE INJ 25 MG/ML AMP ONE (10:11)
[2019-08-13 10:25] VITALS: O2SAT 96
--- NOTE | 2019-08-13 10:34 | OP ---
Date of Procedure: 08/13/2019 Surgeon: Niall Pina MD Access Liaison: JENELLE Chapman Preoperative Diagnoses: Acute cholecystitis and cholelithiasis. Postoperative Diagnosis: Acute cholecystitis and cholelithiasis. Procedure: Laparoscopic cholecystectomy. Estimated Blood Loss: Minimal. Specimens: Gallbladder. Findings: As above. Anesthesia: General. Complications: None. Disposition: Patient tolerated the procedure in stable condition, taken to Recovery in good general condition. Procedure In Detail: Patient was brought to the OR and placed in supine position. General anesthesia was begun. Patient was prepped and draped in the usual sterile fashion. Marcaine 0.5% was infiltra vilma locally. 15 blade, was used to make a 1 cm supraumbilical midline incision. Subcutaneous tissue was divided. Fascia was identified and divided. A #1 Vicryl stay suture placed. Peritoneal cavity was entered with sharp and blunt dissection. 12 mm trocar was placed into the peritoneal cavity und er direct vision. Pneumoperitoneum was established. Then, three 5 mm trocars were placed, 1 in the epigastrium just to the right of the midline and 2 in the right subcostal region. Laparoscopy reveal ed a distended gallbladder, which was aspirated of bile. It was acutely inflamed. Fundus retracted superiorly. Infundibulum identified and retracted inferolaterally. Cystic duct and cystic artery we re clearly identified with blunt dissection. Clips placed. Both structures were divided. Cautery w as used to remove the gallbladder from the liver bed. Bleeding on the liver bed was controlled with cautery. Gallbladder was retrieved through the umbilicus via EndoCatch bag. Right upper quadrant ir rigated. Effluent was clear. No evidence of bleeding or bile leakage appreciated. Subsequently, al l trocars were removed under direct vision. Stay sutures were tied to each other to reapproximate th e fascial defect. Subcutaneous wounds were irrigated. Bleeding controlled with cautery. 3-0 chromi c used to reapproximate subcutaneous tissue and close the skin. Sterile dressing was applied. Patie nt was awakened and taken to Recovery in good general condition. Discharge Note: Patient will go to the floor and then discharged after lunch. Disposition: Home. Condition: Stable. Discharge Instructions: Resume home medications. Diet and activity as tolerated. No heavy lifting. Tylenol No. 3 one tablet p.o. q.4 p.r.n. pain. Follow up in my office in 1 week. Call for appoint ment. Remove outer dressing in a.m. Shower. Keep wound clean and dry. Keep Steri-Strips on at all times. BERNARD/ZOË Voice ID: [id number] Report ID: [id number]
[2019-08-13 11:36] VITALS: BMI 34.0
[2019-08-13] MEDS ORDERED: CEFOXITIN/SWI 1gm 1 GM/10 ML SYR IV SCH (12:00)
[2019-08-13] MEDS ORDERED: CEFOXITIN SODIUM 1 GM/VIAL IVPB SCH (12:00)
[2019-08-13 13:57] VITALS: BP 103/71; TEMP 97.5
== END 2019-08-13 13:26 | disposition home or self-care (01) | DRG 419 ==
LOC: ER 03:46 → ERHOLD 07:00 → 2ND 08:09
PROVIDERS: ADMIT Surgery; ATTEND Surgery
PROC: 0FT44ZZ Resection of Gallbladder, Percutaneous Endoscopic Approach (ICD-10-PCS; principal; 2019-08-13 08:30)
DX: K80.00 Calculus of gallbladder with acute cholecystitis without obstruction (principal)
CPT/HCPCS: 36415; 74177; 80048; 80076; 81003; 81025; 83690; 85025; 88304; 96374; 96375; 99285; J1100; J1170; J2250; J2405; J2543; J2550; J2704; J2710; J3010; J7120; Q9967